=== PATIENT | male | born 1940 | race Caucasian/White ===

== ENCOUNTER 2017-04-07 10:05 | Outpatient (CLI) | payer MEDICARE, OTHER ==
[2017-04-07] MEDS ORDERED: fentaNYL 100 MCG/2 ML VIAL ONE (22:33)
== END 2017-04-07 10:06 | disposition critical access hospital (66) ==
LOC: EMS 10:05
PROVIDERS: ATTEND Surgery
DX: R10.9 Unspecified abdominal pain (principal); M54.9 Dorsalgia, unspecified
CPT/HCPCS: A0425; A0427

== ENCOUNTER 2017-04-07 10:24 | Inpatient (IN) | payer MEDICARE, OTHER ==
[2017-04-07] MEDS ORDERED: HYDROmorphone 1 MG/ML CARPUJECT IVP STA ×5 (10:35→16:38)
[2017-04-07] MEDS ORDERED: SODIUM CHLORIDE 0.9% 1,000 ML IV ONE ×2 (10:35→11:51)
--- NOTE | 2017-04-07 10:38 | ED Physician Documentation ---
History of Present Illness - Stated complaint Stated Complaint: ABD PX - Chief complaint Chief Complaint: Abd Pain - Additonal information Additional information: hx from pt 76 male no prior abd surgeyr abd pain begain at 830epigastric region initially felt like gas rapidly worsened sharp was 10/10 down to 7/10 s/p 150 fenatnyl from EMS rad to back no CO no fever no NVD last BM today s blood no new urinary sx no numbness or weakness Review of Systems Constitutional: denies: Fever, Chills Cardiac: denies: Chest pain / pressure GI: reports: Abdominal Pain. 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) Immunocompromised: denies: Immunocompromised PD PAST MEDICAL HISTORY - Present Medications Home Medications: Ambulatory Orders Medication Instructions Recorded Confirmed Carbidopa/Levodopa [Rytary ER 2 tab PO QID 04/07/17 04/07/17 23.75 mg-95 mg Cap] Clopidogrel [Plavix] 75 mg PO DAILY 04/07/17 04/07/17 Gabapentin 300 mg PO BID 04/07/17 04/07/17 OXcarbazepine [Trileptal] 2 tab PO BID 04/07/17 04/07/17 Pramipexole [Mirapex] 50 mg PO TID 04/07/17 04/07/17 Rosuvastatin Calcium 10 mg PO DAILY 04/07/17 04/07/17 - Allergies Allergies/Adverse Reactions: Allergies Allergy/AdvReac Type Severity Reaction Status Date / Time haloperidol [From Haldol] Allergy Unknown Verified 04/07/17 10:35 haloperidol lactate * Allergy Unknown Verified 04/07/17 10:35 [From Haldol] PD ED PE NORMAL - Vitals Vital signs reviewed: Yes - Cardiac Cardiac: RRR - Respiratory Respiratory: No respiratory distress, Clear bilaterally - Abdomen Abdomen: Soft, Other (severe TTP upper abd s peritoneal signs plapabl aorta as pt is thin, no sig lower abd pain, fullness to inguiinal region osbaldo) - Derm Derm: Normal color - Extremities Extremities: No edema, Other (+ pedal pulses) - Neuro Neuro: Alert and oriented X 3, No motor deficit Results - Vitals Vitals: Vital Signs - 24 hr 04/07/17 04/07/17 04/07/17 10:30 10:38 11:18 Temperature 36.5 C Heart Rate 72 71 Respiratory 22 18 Rate Blood Pressure 150/80 H 140/68 H 180/80 H O2 Saturation 100 98 04/07/17 04/07/17 04/07/17 12:19 13:41 15:53 Temperature 36.1 C L 36.5 C 36.9 C Heart Rate 81 75 78 Respiratory 22 16 18 Rate Blood Pressure 180/80 H 133/93 H 145/70 H O2 Saturation 100 96 100 04/07/17 04/07/17 04/07/17 17:51 19:09 20:26 Temperature 36.0 C L 36.5 C Heart Rate 75 69 79 Respiratory 15 16 16 Rate Blood Pressure 114/62 152/76 H 138/79 H O2 Saturation 97 99 96 Oxygen O2 Source Room air - EKG (time done) 1050 Rate: Rate (enter#) (65) Rhythm: NSR [place]: Normal Ischemia: ST elevation c/w repol, Other (tall T waves) - Labs Labs: Laboratory Tests 04/07/17 04/07/17 04/07/17 10:45 10:45 10:45 WBC 5.0 RBC 4.24 L Hgb 13.6 L Hct 40.8 L MCV 96.3 H MCH 32.1 H MCHC 33.3 RDW 12.9 Plt Count 155 MPV 7.4 Neut # 3.0 Lymph # 1.5 [place] # 0.4 Eos # 0.1 Baso # 0.0 Absolute Nucleated RBC 0.00 Nucleated RBCs 0.0 Sodium 138 Potassium 4.1 Chloride 103 Carbon Dioxide 26 Anion Gap 9.0 BUN 23 H Creatinine 1.1 Estimated GFR (MDRD) 65 L Glucose 107 H Lactic Acid Calcium 9.1 Total Bilirubin 0.8 AST 29 ALT < 10 L Alkaline Phosphatase 54 Troponin I < 0.04 Total Protein 6.2 L Albumin 4.0 Globulin 2.2 Albumin/Globulin Ratio 1.8 Lipase 24 Urine Color Urine Clarity Urine pH Ur Specific [place] Urine Protein Urine Glucose (UA) Urine Ketones Urine Occult Blood Urine Nitrite Urine Bilirubin Urine Urobilinogen Ur Leukocyte Esterase Ur Microscopic Review Urine Culture Comments 04/07/17 04/07/17 15:59 17:00 WBC RBC Hgb Hct MCV MCH MCHC RDW Plt Count MPV Neut # Lymph # [place] # Eos # Baso # Absolute Nucleated RBC Nucleated RBCs Sodium Potassium Chloride Carbon Dioxide Anion Gap BUN Creatinine Estimated GFR (MDRD) Glucose Lactic Acid 1.2 Calcium Total Bilirubin AST ALT Alkaline Phosphatase Troponin I Total Protein Albumin Globulin Albumin/Globulin Ratio Lipase Urine Color YELLOW Urine Clarity CLEAR Urine pH 6.0 Ur Specific [place] >=1.030 H Urine Protein NEGATIVE Urine Glucose (UA) NEGATIVE Urine Ketones 15 H Urine Occult Blood NEGATIVE Urine Nitrite NEGATIVE Urine Bilirubin NEGATIVE Urine Urobilinogen 0.2 (NORMAL) Ur Leukocyte Esterase NEGATIVE Ur Microscopic Review NOT INDICATED Urine Culture Comments NOT INDICATED - Rads (name of study) CT abd pelvis Radiology: See rad report (closed loop bowel osbt L mid abd) PD MEDICAL DECISION MAKING - ED course ED course: severe epigastric pain rad to back restless, palpable aorta bedside sono not working/avil so got stat non con CT and it did not show a AAA but did show a closed loop bowel obst so consulted surgeron Dr Tay he req CT oral con - then rad rec fluoro small bowel follow through instead - on second image no progress of contrast past stomach so completely obstructed Dr Bernal to take pt to OR Departure - Departure Disposition: ED Transfer to [facility] Clinical Impression: Abdominal pain Qualifiers: Abdominal location: left upper quadrant Qualified Code(s): R10.12 - Left upper quadrant pain Intestinal obstruction Qualifiers: Intestinal obstruction type: unspecified Qualified Code(s): K56.60 - Unspecified intestinal obstruction Condition: Fair
[2017-04-07 10:58] LABS: BASOPHILS % (AUTO) 0.8 %; EOSINOPHILS # (AUTO) 0.1 10^3/uL (0.0-0.7); EOSINOPHILS % (AUTO) 1.1 %; HCT - HEMATOCRIT 40.8 % (42.0-52.0); HGB - HEMOGLOBIN 13.6 g/dL (14.0-18.0); LYMPHOCYTES # (AUTO) 1.5 10^3/uL (1.5-3.5); LYMPHOCYTES % (AUTO) 29.4 %; MEAN CORPUSCULAR HEMOGLOBIN 32.1 pg (27.0-31.0); MEAN CORPUSCULAR HGB CONC 33.3 g/dL (32.0-36.0); MEAN CORPUSCULAR VOLUME 96.3 fL (80.0-94.0); MEAN PLATELET VOLUME 7.4 fL (7.4-11.4); MONOCYTES # (AUTO) 0.4 10^3/uL (0.0-1.0); MONOCYTES % (AUTO) 8.5 %; NEUTROPHILS % (AUTO) 60.2 %; RED BLOOD COUNT 4.24 10^6/uL (4.70-6.10); RED CELL DISTRIBUTION WIDTH 12.9 % (12.0-15.0)
[2017-04-07] MEDS ORDERED: HYDROmorphone 1 MG/ML CARPUJECT ONE ×5 (10:59→17:12)
[2017-04-07 11:15] LABS: ALBUMIN/GLOBULIN RATIO 1.8 (1.0-2.2); BILIRUBIN,TOTAL 0.8 mg/dL (0.2-1.0); BUN - BLOOD UREA NITROGEN 23 mg/dL (6-20); CALCIUM 9.1 mg/dL (8.5-10.3); CARBON DIOXIDE - CO2 26 mmol/L (21-32); CHLORIDE 103 mmol/L (101-111); CREATININE 1.1 mg/dL (0.6-1.2); GFR - MDRD 65 (>89); GLUCOSE 107 mg/dL (70-100); LIPASE 24 U/L (22-51); POTASSIUM 4.1 mmol/L (3.5-5.0); SODIUM 138 mmol/L (135-145); TOTAL PROTEIN 6.2 g/dL (6.7-8.2)
--- NOTE | 2017-04-07 12:29 | CT Preliminary Report ---
Exam: CT Abdomen/Pelvis W/O IMPRESSION: 1. Closed loop bowel small bowel obstruction in the left midabdomen. Findings discussed with Dr. Julia Echols by Dr. Joy Hanson on 04/07/2017 at 1220. [facility] SITE ID: [id number]
--- NOTE | 2017-04-07 12:32 | CT Report ---
EXAM: CT ABDOMEN AND PELVIS (CT KUB) EXAM DATE: 04/07/2017 11:19 AM. CLINICAL HISTORY: Sharp upper abd pain rad to back. COMPARISONS: None. TECHNIQUE: Routine axial helical CT imaging was performed through the abdomen and pelvis without IV c ontrast. Reconstructions: Coronal and sagittal. In accordance with CT protocol optimization, one or more of the following dose reduction techniques w ere utilized for this exam: automated exposure control, adjustment of mA and/or KV based on patient s ize, or use of iterative reconstructive technique. FINDINGS: Lung Bases: Unremarkable. Right Kidney/Ureter: Mild nonspecific perinephric fat stranding. No stones or hydronephrosis Left Kidney/Ureter: Mild nonspecific perinephric fat stranding. No stones or hydronephrosis Other Solid Organs: Noncontrast images of the solid organs are grossly unremarkable. Gallbladder/Bile Ducts: Unremarkable. Peritoneal Cavity: There is distention of radially distributed fluid-filled small bowel loops in the left midabdomen with surrounding free fluid and swirled mesentery (for reference, transverse series 3 , image 37 and coronal series 5, image 15). The proximal and distal bowel is decompressed. High atten uation material in lower abdominal small bowel loops may represent ingested material. Normal appendix . No pneumoperitoneum. Pelvic Organs: Normal urinary bladder. Soft tissue attenuation in the right scrotum may represent a r etracted testis or prior hernia repair with mesh. Vasculature: Moderate aortobiiliac atherosclerosis without aneurysm. Other: Severe degenerative disk disease L5-S1. Mild levocurvature of the lumbar spine. IMPRESSION: 1. Closed loop bowel small bowel obstruction in the left midabdomen. Findings discussed with Dr. Julia Echols by Dr. Joy Hanson on 04/07/2017 at 1220. [facility] Referring Provider Line: [phone] SITE ID: [id number]
[2017-04-07] MEDS ORDERED: IOPAMIDOL-300 50 ML VIAL ONE (13:15)
[2017-04-07 17:26] LABS: BILIRUBIN,URINE NEGATIVE (NEGATIVE)
[2017-04-07 17:27] LABS: UA CHARGE (STRIP ONLY) YES; UR CULTURE IF IND NOT INDICATED
--- NOTE | 2017-04-07 19:13 | XRAY Report ---
SMALL BOWEL FOLLOW THROUGH: 04/07/2017 HISTORY: Abnormal CT scan raising the possibility of bowel obstruction. FINDINGS: The preliminary dehydrator operator film shows a grossly nonspecific bowel gas pattern. The patient is given 100 mL of Gastrografin to swallow by mouth. Images are performed initially, at 30 minutes, and at 2 hours 40 minutes. The contrast material remains in the stomach, the majority of it within the gastric fundus with reflux into the distal half of a mildly dilated esophagus. The findings were discussed with Dr. Tay and the study was terminated. IMPRESSION: CONTRAST REMAINS WITHIN THE ESOPHAGUS AND STOMACH 2 HOURS 40 MINUTES AFTER CONTRAST INGESTION. JOB #: [id number] EXT JOB #: [id number] [facility]
[2017-04-07] MEDS ORDERED: LACTATED RINGERS 1,000 ML IV ONE ×2 (19:52→22:22)
[2017-04-07] MEDS: LACTATED RINGERS 1,000 ML IV ONE ×2 (19:52→22:13)
[2017-04-07] MEDS ORDERED: PROPOFOL 200 MG/20 ML VIAL IVP ONE (20:00)
[2017-04-07] MEDS ORDERED: ONDANSETRON 4 MG/2 ML VIAL IVP ONE (20:00)
[2017-04-07] MEDS ORDERED: ROCURONIUM 50 MG/5 ML VIAL IVP ONE (20:00)
[2017-04-07] MEDS ORDERED: NEOSTIGMINE 1 MG/1 ML 10 ML MDV IVP ONE (20:00)
[2017-04-07] MEDS ORDERED: GLYCOPYRROLATE 1 MG/5 ML VIAL IVP ONE (20:00)
[2017-04-07] MEDS ORDERED: ePHEDrine 50 MG/ML VIAL IVP ONE (20:00)
[2017-04-07] MEDS ORDERED: ceFAZolin 1 GM VIAL IV ONE (20:00)
[2017-04-07] MEDS ORDERED: MIDAZOLAM 2 MG/2 ML VIAL IVP ONE (20:00)
[2017-04-07] MEDS ORDERED: LIDOCAINE-MPF 2% 5 ML VIAL IM ONE (20:00)
[2017-04-07] MEDS ORDERED: SUCCINYLCHOLINE 200 MG/10 ML VIAL IVP ONE (20:00)
[2017-04-07] MEDS ORDERED: fentaNYL 100 MCG/2 ML VIAL IVP ONE (20:00)
[2017-04-07] MEDS ORDERED: DEXAMETHASONE 4 MG/ML VIAL IVP ONE (20:00)
--- NOTE | 2017-04-07 20:07 | XRAY Preliminary Report ---
Exam: XR Abdomen 1 View IMPRESSION: 1. Contrast remains in the stomach. 2. Minimally prominent small bowel loops in the left mid abdomen corresponding to the CT findings. No focal transition point is noted. [facility] SITE ID: [id number]
--- NOTE | 2017-04-07 20:20 | XRAY Report ---
EXAM: ABDOMEN RADIOGRAPHY EXAM DATE: 04/07/2017 07:57 p.m. CLINICAL HISTORY: Abdominal pain. COMPARISON: 04/07/2017. TECHNIQUE: 1 view. FINDINGS: Bowel Gas Pattern: Contrast is present within the stomach. Mildly prominent small bowel loops are pre sent in the left mid abdomen measuring up to 2.7 cm. No pneumatosis. No dilated bowel or focal transi tion point. Moderate amount of stool is noted in the right colon. Other: Phleboliths are noted in the pelvis. IMPRESSION: 1. Contrast remains in the stomach. 2. Minimally prominent small bowel loops in the left mid abdomen corresponding to the CT findings. No focal transition point is noted. [facility] Referring Provider Line: [phone] SITE ID: [id number]
[2017-04-07] MEDS ORDERED: BUPIVACAINE 0.5% PF 30 ML VIAL INFIL ONE (22:13)
[2017-04-07] MEDS ORDERED: ACETAMINOPHEN 1,000 MG/100 ML 100 ML IV ONE (22:28)
[2017-04-07] MEDS: fentaNYL 100 MCG/2 ML VIAL ONE ×2 (22:30→22:45)
[2017-04-07] MEDS: HYDROmorphone 1 MG/ML CARPUJECT ONE ×2 (22:33→22:40)
[2017-04-07] MEDS ORDERED: ONDANSETRON 4 MG/2 ML VIAL IVP PRN (22:46)
[2017-04-07] MEDS ORDERED: PHENOL THROAT SPRAY 177 ML MM PRN (22:46)
--- NOTE | 2017-04-07 22:59 | OPERATIVE REPORT ---
Operative Report - General Procedure Date: 04/07/17 Planned Procedure: Exploratory laparotomy possible bowel resection Pre-Op Diagnosis: Bowel obstruction and abdominal pain Procedure Performed: Exploratory laparotomy and adhesiolysis Post Op Diagnosis: Adhesive bowel obstruction - Procedure Note Primary Surgeon: Luis Tay MD Anesthesia Provider: Anjana Williamson Anesthesia Technique: General ET tube, Local (30 mL 1/2% marcaine) IV Fluids (mL): 1,000 Estimated Blood Loss (mL): 10 (Note 800 mL of bloody fluid found in abdomen) Complications: None. - Other Other Information/Narrative: OPERATIVE DESCRIPTION/REPORT: After verbal and written informed consent was obtained detailing the risks of infection, bleeding requiring transfusion with its risks, and , the patient was brought to the operative suite and placed supine on the operating table. Great care was taken to avoid pressure points to prevent pressure necrosis or nerve injury. Monitoring devices were applied along with TEDs and pneumatic compressive stockings (to prevent DVT). The patient received preoperative antibiotics for surgical prophylaxis. Anjana Williamson sedated and anesthetized the patient for the entire procedure. A Judd was placed. The patient was prepped and draped in the usual sterile manner. A "time in" then confirmed that the paitient was identified with 3 identifiers (name, birthdate and medical record number), the history and physical was in the chart, the signed consent confirming the procedure was in the chart, the patient was in the correct position, the aforementioned prophylactic measures were in place or given, we had the correct personnel and equipment to complete the procedure and that anesthesia, surgery and nursing were given an opportunity to express any concerns. With the agreement of everyone in the room, we proceeded with the operation. A midline incision was made from just above the umbilicus to just below the xiphoid. Sharp dissection utilizing Bovie electrocautery was used to expose the linea alba. The linea alba was opened using Bovie electrocautery. The peritoneum was incised using Metzenbaum scissor gaining entry into the abdomen without incident. Upon opening the peritoneum, the abdomen was carefully examined. Immediately there was a return of approximately 800 mL of bloody serous fluid. The liver and spleen were visually and palpably normal. The stomach was distended but normal-appearing. There is nothing seen in the stomach to suggest the cause of obstruction. The colon was run and was normal with hard stool throughout it. The stools within the colon were hard and small. When the small bowel was run it was clear that there was an adhesion of omentum down to the posterior portion of the abdomen causing a closed loop obstruction. The amount of bowel involved was approximately 16 inches. It was dusky but clearly viable. It was a source of the large amount of bloody fluid in the patient's abdomen. The adhesion was cut, freeing the bowel, and the bowel was placed into warm saline moistened towels to help revitalize it. After allowing this to occur for approximately 10 minutes the bowel was examined and was clearly viable. All the bowel and the omentum placed back into the abdomen and the abdomen was irrigated with 1 L of warm sterile saline. The fascia was approximated using O looped PDS starting superiorly and inferiorly and running to tie it in the middle. The fascia and skin was injected with 1/2% marcaine for pain control. The skin was approximated using a 4-0 Monocryl in a running subcuticular fashion. A dressing was placed on the wound. At this point a time out was performed that confirmed that all the counts were correct, the procedure that was performed, the blood loss, the urine output, the IV fluids administered, and the patients condition. Having tolerated the procedure well, the patient was subsequently extubated and taken to recovery room in good and stable condition. [employer] disclaimer: This document was created in part using voice recognition technology. Because of the inherent limitations of the system ([employer]'s [employer] Dictate user manual states that the licensee understands that speech recognition is a statistical process and that recognition errors are inherent in the process), occasional same sounding word substitutions and grammatical errors do occur and persist despite proofreading. Please read this document for context.
[2017-04-08] MEDS: HYDROmorphone 1 MG/ML CARPUJECT IVP PRN ×8 (00:53→18:53)
[2017-04-08] MEDS: SODIUM CHLORIDE FLUSH 0.9% 10 ML SYRINGE IVP PRN (00:53)
[2017-04-08] MEDS: D5NS W/20 MEQ KCL 1,000 ML IV SCH ×2 (01:06→13:18)
[2017-04-08] MEDS: ACETAMINOPHEN 1,000 MG/100 ML 100 ML IV SCH ×6 (01:06→22:26)
--- NOTE | 2017-04-08 01:23 | CONSULTATION NOTE ---
DATE OF CONSULTATION: 04/07/2017 00:00:00 REQUESTING PROVIDER: Dr. Julia Echols. HISTORY OF PRESENT ILLNESS: I am called in consultation Dr. Julia Echols to evaluate this pleasant [age]-year-old male for the abrupt onset of abdominal pain. The patient has not had any previous surgerie s and had the abrupt onset of abdominal pain approximately 8:30 this morning. He initially felt like gas and rapidly worsened to the point the emergency department. Initially the pain was described anyw here from 01/26-04/28 and initial attempts to control it with opiates were unsuccessful. There was no fever. There was no nausea, vomiting. There was no diarrhea. There is no constipation. The last bowel movement was today. The patient has not had a previous history of this. ALLERGIES Haldol. MEDICATIONS: 1. Carbidopa/Levodopa 23.75-95 mg capsule 2 tabs p.o. q.i.d.. 2. Plavix 75 mg p.o. daily. 3. Gabapentin 300 mg p.o. b.i.d. 4. Trileptal 2 tabs p.o. b.i.d. 5. Mirapex 50 mg tablet p.o. t.i.d. 6. Rosuvastatin calcium 10 mg p.o. daily. PAST MEDICAL AND SURGICAL HISTORY: 1. Parkinsonism. 2. History of stroke. 3. Dyslipidemia. FAMILY HISTORY: Noncontributory for this and was not asked. SOCIAL HISTORY: Tobacco, none. Alcohol, none. Recreational drug use, none. REVIEW OF SYSTEMS: CONSTITUTIONAL: He denies any fevers or chills. He denies any weight loss. HEENT: He denies any improvement or decrease in his hearing or vision, denies any difficulty speaking or swallowing. CARDIAC: He denies chest pain or pressure. RESPIRATORY: He denies shortness of breath or productive cough. GASTROINTESTINAL: Please see above. GENITOURINARY: He denies dysuria. MUSCULOSKELETAL: He has chronic back pain. NEUROLOGIC: Again, Parkinsonism. PHYSICAL EXAMINATION: The patient was examined in room 9 at [facility]. He was exam ined numerous times and initially noted to be in a great deal of pain, but then the pain subsided. He is alert and oriented to person, place and time. He does demonstrate some of the speaking qualities of general Parkinson's. VITAL SIGNS: Please refer to the nurse's notes. HEENT: He is normocephalic, atraumatic. His sclerae are noninjected, nonicteric. His mucous membranes are pink and dry. NECK: Supple without mass or bruit. HEART: Regular rate and rhythm without rub, murmur or gallop. LUNGS: Clear to auscultation bilaterally. ABDOMEN: Surprisingly, scaphoid. There was no palpable hepatosplenomegaly. There are bowel sounds. Th ere are almost normal, a little bit diminished. He has no peritoneal findings. RECTAL: Deferred. GENITOURINARY: Deferred. EXTREMITIES: Did not reveal any clubbing, cyanosis or edema. GAIT: Not evaluated. PSYCHIATRIC: He is alert and oriented to person, place and time, although he demonstrates again as me ntioned some of the speaking qualities similar to Parkinson's. His mood and affect appear appropriate . LABORATORY: Abnormalities on his CMP include a BUN of 23, GFR of 65, glucose of 107, ALT of less than 10, total protein of 6.2. Abnormalities on his hematology include a RBC of 4.24, hemoglobin 13.6, he matocrit of 40.8, MCV of 96.3, and a MCH of 32.1 Abnormalities in his urine reveals specific gravity of greater than 1.030 and urine ketones of 15. His initial abdominopelvic CT read by Dr. Hanson is read this closed loop small-bowel obstruction in th e left mid abdomen. ASSESSMENT: A 76-year-old gentleman with bowel obstruction. PLAN: Exploratory laparotomy and lysis of adhesions. It took a little while to convince the patient o f the need for surgery. However, the indications, procedure, alternatives and possible complications including but not limited to infection, bleeding with all of its risks including transfusion, and jackelyn th with him and answered all of his questions. Postoperative course was discussed with him as terms o f what the expected postoperative course is. I explained that postoperatively he would be allowed to and encouraged to take his own medications. The patient did give verbal and written consent for the p rocedure. He is going to be admitted as an inpatient with anticipated stay at greater than 2 days. I have asked him to let us know if there is any way we can make his stay here at [facility] mo re comfortable please let us know. I will also consult the hospitalist service to ensure that his med ications are looked over to make sure that I am not overly looking anything. JOB #: [id number] EXT JOB #:[id number]
[2017-04-08] MEDS: ceFAZolin 2 GM/50 ML 50 ML IV SCH ×3 (04:14→20:08)
[2017-04-08 05:39] LABS: BASOPHILS % (AUTO) 0.1 %; HCT - HEMATOCRIT 41.6 % (42.0-52.0); HGB - HEMOGLOBIN 13.7 g/dL (14.0-18.0); LYMPHOCYTES # (AUTO) 0.4 10^3/uL (1.5-3.5); LYMPHOCYTES % (AUTO) 3.7 %; MEAN CORPUSCULAR HEMOGLOBIN 32.2 pg (27.0-31.0); MEAN CORPUSCULAR HGB CONC 32.8 g/dL (32.0-36.0); MEAN CORPUSCULAR VOLUME 98.1 fL (80.0-94.0); MEAN PLATELET VOLUME 7.7 fL (7.4-11.4); MONOCYTES # (AUTO) 0.3 10^3/uL (0.0-1.0); MONOCYTES % (AUTO) 2.6 %; NEUTROPHILS # (AUTO) 9.2 10^3/uL (1.5-6.6); NEUTROPHILS % (AUTO) 93.6 %; RED BLOOD COUNT 4.24 10^6/uL (4.70-6.10); RED CELL DISTRIBUTION WIDTH 13.2 % (12.0-15.0); UNCORRECTED WHITE BLOOD COUNT 9.9 x10^3/uL; WHITE BLOOD COUNT 9.9 x10^3/uL (4.8-10.8)
[2017-04-08 05:50] LABS: ALBUMIN/GLOBULIN RATIO 1.5 (1.0-2.2); BILIRUBIN,TOTAL 0.8 mg/dL (0.2-1.0); BUN - BLOOD UREA NITROGEN 23 mg/dL (6-20); CARBON DIOXIDE - CO2 25 mmol/L (21-32); CHLORIDE 107 mmol/L (101-111); GFR - MDRD 72 (>89); GLUCOSE 181 mg/dL (70-100); POTASSIUM 4.9 mmol/L (3.5-5.0); SODIUM 138 mmol/L (135-145); TOTAL PROTEIN 5.5 g/dL (6.7-8.2)
[2017-04-08] MEDS ORDERED: PRAMIPEXOLE 0.25 MG TABLET PO SCH ×2 (06:00→07:00)
[2017-04-08] MEDS: SODIUM CHLORIDE FLUSH 0.9% 10 ML SYRINGE IVP SCH ×3 (06:26→21:16)
[2017-04-08] MEDS: PANTOPRAZOLE 40 MG VIAL IVP SCH (06:26)
[2017-04-08] MEDS ORDERED: ROSUVASTATIN CALCIUM 10 MG PO SCH (09:00)
[2017-04-08] MEDS: OXcarbazepine 150 MG TABLET PO SCH ×2 (10:45→21:15)
[2017-04-08] MEDS: GABAPENTIN 300 MG CAPSULE PO SCH ×2 (10:45→21:16)
[2017-04-08] MEDS: CLOPIDOGREL 75 MG TABLET PO SCH (11:04)
[2017-04-08] MEDS: PRAMIPEXOLE 0.25 MG TABLET PO SCH ×3 (12:12→21:16)
[2017-04-08] MEDS: Carbidopa/Levodopa [Rytary Er 23.75 Mg-95 Mg Cap] PO SCH ×4 (12:13→22:27)
[2017-04-08] MEDS ORDERED: tiZANidine 4 MG TABLET PO PRN (13:41)
[2017-04-08] MEDS: ATORVASTATIN 40 MG TABLET PO SCH (21:15)
--- NOTE | 2017-04-08 23:20 | PROVIDER PROGRESS NOTE ---
Subjective - General Admit Date: 04/07/17 Procedure Date: 04/07/17 Post Op Days: 1 Procedure Performed: Exploratory laparotomy and adhesiolysis - Review of Systems Wound/Incisions: positive: Dressing dry and intact General: positive: Other (Complaint of Parkinson's related pain. Some occasional abdominal bloating. NG tube pulled by me.) HEENT: positive: No symptoms Cardiovascular: positive: No symptoms Gastrointestinal: positive: Other (Occasional bloating.) Genitourinary: positive: Other (Judd in place will remove in AM.) Musculoskeletal: positive: Other (Parkinsonian pain.) Skin: positive: No symptoms Psychiatric: positive: No symptoms Objective - Patient Data Reviewed Vital Signs: Yes Vital Signs: Vital Signs x48h Temp Pulse Resp BP Pulse Ox 04/08/17 15:54 36.6 C 76 18 110/52 L 97 Weight: Weight 04/06/17 04/07/17 04/08/17 23:59 23:59 23:59 Weight (kg) 68.5 kg Intake & Output: Intake and Output Totals x24h 04/06/17 04/07/17 04/08/17 23:59 23:59 23:59 Intake Total 1999 2136 Output Total 1075 Balance 1999 1062 - Lab Results Lab Results: 04/08/17 05:26 04/08/17 05:26 Other Lab Results: Lab Results x24hrs 04/08/17 04/08/17 Range/Units 05:26 05:26 WBC 9.9 (4.8-10.8) x10^3/uL RBC 4.24 L (4.70-6.10) 10^6/uL Hgb 13.7 L (14.0-18.0) g/dL Hct 41.6 L (42.0-52.0) % MCV 98.1 H (80.0-94.0) fL MCH 32.2 H (27.0-31.0) pg MCHC 32.8 (32.0-36.0) g/dL RDW 13.2 (12.0-15.0) % Plt Count 146 (130-450) 10^3/uL MPV 7.7 (7.4-11.4) fL Neut # 9.2 H (1.5-6.6) 10^3/uL Lymph # 0.4 L (1.5-3.5) 10^3/uL [place] # 0.3 (0.0-1.0) 10^3/uL Eos # 0.0 (0.0-0.7) 10^3/uL Baso # 0.0 (0.0-0.1) 10^3/uL Absolute Nucleated RBC 0.00 x10^3/uL Nucleated RBCs 0.0 /100WBC Sodium 138 (135-145) mmol/L Potassium 4.9 (3.5-5.0) mmol/L Chloride 107 (101-111) mmol/L Carbon Dioxide 25 (21-32) mmol/L Anion Gap 6.0 (6-13) BUN 23 H (6-20) mg/dL Creatinine 1.0 (0.6-1.2) mg/dL Estimated GFR (MDRD) 72 L (>89) Glucose 181 H (70-100) mg/dL Calcium 8.0 L (8.5-10.3) mg/dL Total Bilirubin 0.8 (0.2-1.0) mg/dL AST 25 (10-42) IU/L ALT < 10 L (10-60) IU/L Alkaline Phosphatase 50 (42-121) IU/L Total Protein 5.5 L (6.7-8.2) g/dL Albumin 3.3 (3.2-5.5) g/dL Globulin 2.2 (2.1-4.2) g/dL Albumin/Globulin Ratio 1.5 (1.0-2.2) - Current Medications Current Medications: Current Medications Generic Name Dose Route Start Last Admin Trade Name Saschaq PRN Reason Stop Dose Admin Atorvastatin Calcium 40 mg 04/08/17 21:00 04/08/17 21:15 Lipitor PO 40 mg QPM HAKAN Administration Clopidogrel Bisulfate 75 mg 04/08/17 09:00 04/08/17 11:04 Plavix PO Not Given DAILY HAKAN Gabapentin 300 mg 04/08/17 09:00 04/08/17 21:16 Neurontin PO 300 mg BID HAKAN Administration Hydromorphone HCl 0.5 mg 04/07/17 22:46 04/08/17 18:53 Dilaudid Inj IVP 0.5 mg Q1HR PRN Administration PAIN Potassium Chloride/Dextrose/Sod Cl 1,000 mls @ 83 mls/hr 04/07/17 23:00 13:18 IV 83 mls/hr .Q12H3M HAKAN Administration Acetaminophen 100 mls @ 400 mls/hr 04/07/17 23:00 04/08/17 22:26 Ofirmev IV 400 mls/hr Q6H HAKAN Administration Cefazolin Sodium/Dextrose 50 mls @ 100 mls/hr 04/08/17 04:00 04/08/17 20:08 Ancef 2 Gm/50 Ml IV 100 mls/hr Q8H HAKAN Administration Oxcarbazepine 300 mg 04/08/17 09:00 04/08/17 21:15 Trileptal PO 300 mg BID HAKAN Administration Pantoprazole Sodium 40 mg 04/08/17 07:00 04/08/17 06:26 Protonix IVP 40 mg QDAC HAKAN Administration Carbidopa/Levodopa [ 1 each 04/08/17 22:00 04/08/17 22:27 Rytary Er 23.75 Mg- PO 1 each 95 Mg Cap] 2200 HAKAN Administration Phenol/Menthol 1 sprays 04/07/17 22:46 04/08/17 00:52 Chloraseptic MM 1 sprays Q2HR PRN Administration Throat Pain Pramipexole Dihydrochloride 0.5 mg 04/08/17 21:00 04/08/17 21:16 Mirapex PO 0.5 mg QID HAKAN Administration Sodium Chloride 10 ml 04/07/17 22:46 04/08/17 00:53 Normal Saline Flush 0.9% IVP 10 ml PRN PRN Administration NEEDED PER PROVIDER ORDERS Sodium Chloride 10 ml 04/08/17 06:00 04/08/17 21:16 Normal Saline Flush 0.9% IVP Not Given Q8HR HAKAN - Physical Exam Wound/Incisions: positive: Dressing dry and intact General Appearance: positive: No acute distress, Anxious (Slightly.) Eyes Bilateral: positive: No lid inflammation, Conjunctivae nml, No scleral icterus Neck: positive: Trachea midline Respiratory: positive: Chest non-tender, No respiratory distress, Breath sounds nml Cardiovascular: positive: Regular rate & rhythm Abdomen: positive: Tenderness (Mild incisional.), Abnml bowel sounds (Decreased. ) Skin: positive: Color nml Neurologic/Psychiatric: positive: Oriented x3 Impression/Plan - Problem List Problem List: D1 s/p exploratory laparotomy and adhesiolysis for closed loop obstruction with compromised bowel that reposnded to conservative measures. 1) FEN Continue IVF with chips and sips for comfort. Until see some evidence of bowel function I am unwilling to feed. 2) Pain Controlled with current regimen. 3) Parkinsons On his daily regimen. If not available through the pharmacy - patient can take his own medications. Thank you to pharmacy and hospitalists for help. 4) DVT Ambulated twice today in the halls - that I personally witnessed. Increased activity should lead to sooner bowel function. 5) ID No current concerns. Antibiotics not needed.
[2017-04-09] MEDS: HYDROmorphone 1 MG/ML CARPUJECT IVP PRN ×9 (00:43→19:03)
[2017-04-09] MEDS: clonazePAM 0.5 MG TABLET PO PRN ×2 (00:43→22:55)
[2017-04-09] MEDS: SODIUM CHLORIDE FLUSH 0.9% 10 ML SYRINGE IVP PRN ×5 (00:59→19:04)
[2017-04-09] MEDS: D5NS W/20 MEQ KCL 1,000 ML IV SCH ×2 (02:36→17:48)
[2017-04-09] MEDS: ceFAZolin 2 GM/50 ML 50 ML IV SCH ×3 (03:22→20:32)
[2017-04-09] MEDS: ACETAMINOPHEN 1,000 MG/100 ML 100 ML IV SCH ×4 (05:14→23:00)
[2017-04-09] MEDS: SODIUM CHLORIDE FLUSH 0.9% 10 ML SYRINGE IVP SCH ×3 (05:14→21:56)
[2017-04-09] MEDS: PANTOPRAZOLE 40 MG VIAL IVP SCH (06:33)
[2017-04-09] MEDS: Carbidopa/Levodopa [Rytary Er 23.75 Mg-95 Mg Cap] PO SCH ×5 (06:33→21:55)
[2017-04-09] MEDS ORDERED: PRAMIPEXOLE 0.25 MG TABLET PO SCH (10:30)
[2017-04-09] MEDS: OXcarbazepine 150 MG TABLET PO SCH ×2 (10:36→20:32)
[2017-04-09] MEDS: PRAMIPEXOLE 0.25 MG TABLET PO SCH ×3 (10:36→18:33)
[2017-04-09] MEDS: GABAPENTIN 300 MG CAPSULE PO SCH ×2 (10:36→21:55)
[2017-04-09] MEDS: CLOPIDOGREL 75 MG TABLET PO SCH ×2 (10:39→20:32)
[2017-04-09] MEDS: ATORVASTATIN 40 MG TABLET PO SCH (20:32)
--- NOTE | 2017-04-09 21:39 | PROVIDER PROGRESS NOTE ---
Subjective - General Admit Date: 04/07/17 Procedure Date: 04/07/17 Post Op Days: 2 Procedure Performed: Exploratory laparotomy and adhesiolysis - Review of Systems Wound/Incisions: positive: Dressing dry and intact General: positive: Other (Still no flatus or bowel movement.) HEENT: positive: No symptoms Pulmonary: positive: No symptoms Cardiovascular: positive: No symptoms Gastrointestinal: positive: No symptoms Genitourinary: positive: Other (Judd in place will remove in AM.) Musculoskeletal: positive: Other (Parkinsonian pain.) Skin: positive: No symptoms Psychiatric: positive: No symptoms Objective - Patient Data Reviewed Vital Signs: Yes Vital Signs: Vital Signs x48h Temp Pulse Resp BP Pulse Ox 04/09/17 16:38 36.2 C L 73 18 146/80 H 98 Weight: Weight 04/07/17 04/08/17 04/09/17 23:59 23:59 23:59 Weight (kg) 68.5 kg Intake & Output: Intake and Output Totals x24h 04/07/17 04/08/17 04/09/17 23:59 23:59 23:59 Intake Total 1999 2137 1627 Output Total 1075 1815 Balance 1999 1062 -188 - Lab Results Lab Results: 04/08/17 05:26 04/08/17 05:26 - Current Medications Current Medications: Current Medications Generic Name Dose Route Start Last Admin Trade Name Freq PRN Reason Stop Dose Admin Atorvastatin Calcium 40 mg 04/08/17 21:00 04/09/17 20:32 Lipitor PO 40 mg QPM HAKAN Administration Clonazepam 0.5 mg 04/08/17 13:41 04/09/17 00:43 Klonopin PO 0.5 mg QPM PRN Administration Insomnia Clopidogrel Bisulfate 75 mg 04/09/17 21:00 04/09/17 20:32 Plavix PO 75 mg 2100 HAKAN Administration Gabapentin 300 mg 04/08/17 09:00 04/09/17 10:36 Neurontin PO 300 mg BID HAKAN Administration Hydromorphone HCl 0.5 mg 04/07/17 22:46 04/09/17 19:03 Dilaudid Inj IVP 0.5 mg Q1HR PRN Administration PAIN Potassium Chloride/Dextrose/Sod Cl 1,000 mls @ 83 mls/hr 04/07/17 23:00 17:48 IV 83 mls/hr .Q12H3M HAKAN Administration Acetaminophen 100 mls @ 400 mls/hr 04/07/17 23:00 04/09/17 18:33 Ofirmev IV 400 mls/hr Q6H HAKAN Administration Cefazolin Sodium/Dextrose 50 mls @ 100 mls/hr 04/08/17 04:00 04/09/17 20:32 Ancef 2 Gm/50 Ml IV 100 mls/hr Q8H HAKAN Administration Oxcarbazepine 300 mg 04/08/17 09:00 04/09/17 20:32 Trileptal PO 300 mg BID HAKAN Administration Pantoprazole Sodium 40 mg 04/08/17 07:00 04/09/17 06:33 Protonix IVP 40 mg QDAC HAKAN Administration Carbidopa/Levodopa [ 2 each 04/09/17 06:30 04/09/17 18:34 Rytary Er 23.75 Mg- PO 2 each 95 Mg Cap] 0630,1030,1430,1830 HAKAN Administration Carbidopa/Levodopa [ 1 each 04/08/17 22:00 04/08/17 22:27 Rytary Er 23.75 Mg- PO 1 each 95 Mg Cap] 2200 HAKAN Administration Phenol/Menthol 1 sprays 04/07/17 22:46 04/08/17 00:52 Chloraseptic MM 1 sprays Q2HR PRN Administration Throat Pain Pramipexole Dihydrochloride 0.5 mg 04/09/17 12:47 04/09/17 18:33 Mirapex PO 0.5 mg 0630,1030,1430,1830 HAKAN Administration Sodium Chloride 10 ml 04/07/17 22:46 04/09/17 19:04 Normal Saline Flush 0.9% IVP 10 ml PRN PRN Administration NEEDED PER PROVIDER ORDERS Sodium Chloride 10 ml 04/08/17 06:00 04/09/17 08:03 Normal Saline Flush 0.9% IVP Not Given Q8HR HAKAN Tizanidine HCl 4 mg 04/08/17 13:41 04/09/17 17:42 Zanaflex PO 4 mg BID PRN Administration SPASMS - Physical Exam Wound/Incisions: positive: Drainage (But dressing intact. Drainage is old blood.) General Appearance: positive: No acute distress Eyes Bilateral: positive: No lid inflammation, Conjunctivae nml, No scleral icterus Neck: positive: Trachea midline Respiratory: positive: Chest non-tender, No respiratory distress, Breath sounds nml Cardiovascular: positive: Regular rate & rhythm Abdomen: positive: Abnml bowel sounds (Slightly decreased.), Other (Minimal incisional tenderness.) Skin: positive: Color nml Extremities: positive: Nml appearance, Other (Slight tremor particularly of the right hand.) Neurologic/Psychiatric: positive: Oriented x3 Impression/Plan - Problem List Problem List: D2 s/p adhesiolysis 1) FEN Continue IVF and liquid diet. Awaiting evidence of bowel function prior to feeding. 2) Parkinsons Appears under control. 3) Pain Controlled. 4) DVT Active - ambulated 2x this AM. Chad and anay when in bed. 5) Judd Out this AM.
[2017-04-10] MEDS: ceFAZolin 2 GM/50 ML 50 ML IV SCH ×3 (03:29→21:02)
[2017-04-10] MEDS: ACETAMINOPHEN 1,000 MG/100 ML 100 ML IV SCH ×4 (04:13→22:34)
[2017-04-10] MEDS: D5NS W/20 MEQ KCL 1,000 ML IV SCH ×3 (06:20→21:02)
[2017-04-10] MEDS: Carbidopa/Levodopa [Rytary Er 23.75 Mg-95 Mg Cap] PO SCH ×5 (06:25→22:34)
[2017-04-10] MEDS: PANTOPRAZOLE 40 MG VIAL IVP SCH (06:26)
[2017-04-10] MEDS: PRAMIPEXOLE 0.25 MG TABLET PO SCH ×4 (06:26→18:27)
[2017-04-10] MEDS: SODIUM CHLORIDE FLUSH 0.9% 10 ML SYRINGE IVP SCH ×3 (06:27→22:35)
[2017-04-10] MEDS: SODIUM CHLORIDE FLUSH 0.9% 10 ML SYRINGE IVP PRN ×2 (06:27→16:40)
[2017-04-10] MEDS: GABAPENTIN 300 MG CAPSULE PO SCH ×2 (10:54→21:02)
[2017-04-10] MEDS: OXcarbazepine 150 MG TABLET PO SCH ×2 (10:54→21:02)
[2017-04-10] MEDS: HYDROmorphone 1 MG/ML CARPUJECT IVP PRN ×2 (11:00→16:40)
--- NOTE | 2017-04-10 17:56 | PROVIDER PROGRESS NOTE ---
Subjective - General Admit Date: 04/07/17 Procedure Date: 04/07/17 Post Op Days: 3 Procedure Performed: Exploratory laparotomy and adhesiolysis - Review of Systems Wound/Incisions: positive: Drainage (But dressing intact. Drainage is old blood.) General: positive: No symptoms (Passed a small amount of gas.) HEENT: positive: No symptoms Pulmonary: positive: No symptoms Cardiovascular: positive: No symptoms Gastrointestinal: positive: No symptoms Genitourinary: positive: No symptoms Musculoskeletal: positive: Other (Parkinsonian pain.) Skin: positive: No symptoms Psychiatric: positive: No symptoms Objective - Patient Data Reviewed Vital Signs: Yes Vital Signs: Vital Signs x48h Temp Pulse Resp BP Pulse Ox 04/10/17 15:49 36.3 C L 67 16 140/62 H 97 Intake & Output: Intake and Output Totals x24h 04/08/17 04/09/17 04/10/17 23:59 23:59 23:59 Intake Total 2137 2483 1727 Output Total 1075 1815 1525 Balance 1062 668 202 - Lab Results Lab Results: 04/08/17 05:26 04/08/17 05:26 - Current Medications Current Medications: Current Medications Generic Name Dose Route Start Last Admin Trade Name Freq PRN Reason Stop Dose Admin Atorvastatin Calcium 40 mg 04/08/17 21:00 04/09/17 20:32 Lipitor PO 40 mg QPM HAKAN Administration Clonazepam 0.5 mg 04/08/17 13:41 04/09/17 22:55 Klonopin PO 0.5 mg QPM PRN Administration Insomnia Clopidogrel Bisulfate 75 mg 04/09/17 21:00 04/09/17 20:32 Plavix PO 75 mg 2100 HAKAN Administration Gabapentin 300 mg 04/08/17 09:00 04/10/17 10:54 Neurontin PO 300 mg BID HAKAN Administration Hydromorphone HCl 0.5 mg 04/07/17 22:46 04/10/17 16:40 Dilaudid Inj IVP 0.5 mg Q1HR PRN Administration PAIN Potassium Chloride/Dextrose/Sod Cl 1,000 mls @ 83 mls/hr 04/07/17 23:00 11:03 IV Not Given .Q12H3M HAKAN Acetaminophen 100 mls @ 400 mls/hr 04/07/17 23:00 04/10/17 16:39 Ofirmev IV 400 mls/hr Q6H HAKAN Administration Cefazolin Sodium/Dextrose 50 mls @ 100 mls/hr 04/08/17 04:00 04/10/17 11:18 Ancef 2 Gm/50 Ml IV 100 mls/hr Q8H HAKAN Administration Oxcarbazepine 300 mg 04/08/17 09:00 04/10/17 10:54 Trileptal PO 300 mg BID HAKAN Administration Pantoprazole Sodium 40 mg 04/08/17 07:00 04/10/17 06:26 Protonix IVP 40 mg QDAC HAKAN Administration Carbidopa/Levodopa [ 2 each 04/09/17 06:30 04/10/17 15:06 Rytary Er 23.75 Mg- PO 2 each 95 Mg Cap] 0630,1030,1430,1830 HAKAN Administration Carbidopa/Levodopa [ 1 each 04/08/17 22:00 04/09/17 21:55 Rytary Er 23.75 Mg- PO 1 each 95 Mg Cap] 2200 HAKAN Administration Phenol/Menthol 1 sprays 04/07/17 22:46 04/08/17 00:52 Chloraseptic MM 1 sprays Q2HR PRN Administration Throat Pain Pramipexole Dihydrochloride 0.5 mg 04/09/17 12:47 04/10/17 17:13 Mirapex PO Not Given 0630,1030,1430,1830 [facility] Sodium Chloride 10 ml 04/07/17 22:46 04/10/17 16:40 Normal Saline Flush 0.9% IVP 10 ml PRN PRN Administration NEEDED PER PROVIDER ORDERS Sodium Chloride 10 ml 04/08/17 06:00 04/10/17 11:19 Normal Saline Flush 0.9% IVP Not Given Q8HR [facility] Tizanidine HCl 4 mg 04/08/17 13:41 04/09/17 17:42 Zanaflex PO 4 mg BID PRN Administration SPASMS - Physical Exam Wound/Incisions: positive: Dressing dry and intact (Some bloody drainage.) General Appearance: positive: No acute distress Eyes Bilateral: positive: No lid inflammation, Conjunctivae nml, No scleral icterus Cardiovascular: positive: Regular rate & rhythm Abdomen: positive: Non-tender, Nml bowel sounds Skin: positive: Color nml Neurologic/Psychiatric: positive: Oriented x3 Impression/Plan - Problem List Problem List: D3 s/p adhesiolysis for closed loop obstruction Bowel function has returned and have started regular diet. Will start oral pain meds and use IV for breakthrough. Make sure he is on all his own medications and after 2 meals (breakfast tomorrow) should evaluate for possible D/C.
[2017-04-10] MEDS: CLOPIDOGREL 75 MG TABLET PO SCH (21:02)
[2017-04-10] MEDS: ATORVASTATIN 40 MG TABLET PO SCH (21:02)
[2017-04-10] MEDS: clonazePAM 0.5 MG TABLET PO PRN (22:34)
[2017-04-11] MEDS: ceFAZolin 2 GM/50 ML 50 ML IV SCH ×3 (03:43→20:10)
[2017-04-11] MEDS: HYDROcod/ACETAM 5/325 MG TABLET PO PRN ×4 (04:07→18:14)
[2017-04-11] MEDS: ACETAMINOPHEN 1,000 MG/100 ML 100 ML IV SCH ×4 (04:09→22:17)
[2017-04-11] MEDS: SODIUM CHLORIDE FLUSH 0.9% 10 ML SYRINGE IVP SCH ×3 (05:35→22:17)
[2017-04-11] MEDS: HYDROmorphone 1 MG/ML CARPUJECT IVP PRN ×2 (06:46→20:13)
[2017-04-11] MEDS: Carbidopa/Levodopa [Rytary Er 23.75 Mg-95 Mg Cap] PO SCH ×5 (06:46→22:15)
[2017-04-11] MEDS: PANTOPRAZOLE 40 MG VIAL IVP SCH (06:46)
[2017-04-11] MEDS: PRAMIPEXOLE 0.25 MG TABLET PO SCH ×4 (06:47→18:15)
[2017-04-11] MEDS: GABAPENTIN 300 MG CAPSULE PO SCH ×2 (08:40→20:09)
[2017-04-11] MEDS: OXcarbazepine 150 MG TABLET PO SCH ×2 (08:40→20:09)
[2017-04-11] MEDS: CLOPIDOGREL 75 MG TABLET PO SCH (20:09)
[2017-04-11] MEDS: ATORVASTATIN 40 MG TABLET PO SCH (20:10)
[2017-04-11] MEDS: clonazePAM 0.5 MG TABLET PO PRN (22:17)
[2017-04-12] MEDS: ceFAZolin 2 GM/50 ML 50 ML IV SCH (03:35)
[2017-04-12] MEDS: SODIUM CHLORIDE FLUSH 0.9% 10 ML SYRINGE IVP SCH ×2 (04:43→12:27)
[2017-04-12] MEDS: ACETAMINOPHEN 1,000 MG/100 ML 100 ML IV SCH ×3 (04:43→16:41)
[2017-04-12] MEDS: HYDROcod/ACETAM 5/325 MG TABLET PO PRN ×3 (05:11→14:35)
[2017-04-12] MEDS: D5NS W/20 MEQ KCL 1,000 ML IV SCH (06:44)
[2017-04-12] MEDS: PANTOPRAZOLE 40 MG VIAL IVP SCH (06:44)
[2017-04-12] MEDS: PRAMIPEXOLE 0.25 MG TABLET PO SCH ×3 (06:47→14:30)
[2017-04-12] MEDS: Carbidopa/Levodopa [Rytary Er 23.75 Mg-95 Mg Cap] PO SCH ×3 (06:48→14:34)
[2017-04-12] MEDS: GABAPENTIN 300 MG CAPSULE PO SCH (08:44)
[2017-04-12] MEDS: OXcarbazepine 150 MG TABLET PO SCH (08:44)
[2017-04-12] MEDS ORDERED: SOAP SUDS ENEMA 1 EACH RC ONE (09:40)
--- NOTE | 2017-04-12 09:46 | PROVIDER PROGRESS NOTE ---
Subjective - General Admit Date: 04/07/17 Procedure Date: 04/07/17 Post Op Days: 5 Procedure Performed: Exploratory laparotomy and adhesiolysis - Review of Systems Wound/Incisions: positive: Dressing dry and intact (Some bloody drainage.) General: positive: Other (not feeling well) HEENT: positive: No symptoms Pulmonary: positive: No symptoms Cardiovascular: positive: No symptoms Gastrointestinal: positive: Other (abdominal distension) Genitourinary: positive: No symptoms Musculoskeletal: positive: Other (Parkinsonian pain.) Skin: positive: No symptoms Psychiatric: positive: No symptoms Objective - Patient Data Intake & Output: Intake and Output Totals x24h 04/10/17 04/11/17 04/12/17 23:59 23:59 23:59 Intake Total 3156 1240 440 Output Total 1525 500 600 Balance 1631 740 -160 - Lab Results Lab Results: 04/08/17 05:26 04/08/17 05:26 - Current Medications Current Medications: Current Medications Generic Name Dose Route Start Last Admin Trade Name Freq PRN Reason Stop Dose Admin Acetaminophen/Hydrocodone Bitart 1 tab 04/10/17 17:59 04/12/17 05:11 [place] 5/325 PO 1 tab Q4HR PRN Administration PAIN Atorvastatin Calcium 40 mg 04/08/17 21:00 04/11/17 20:10 Lipitor PO 40 mg QPM HAKAN Administration Clonazepam 0.5 mg 04/08/17 13:41 04/11/17 22:17 Klonopin PO 0.5 mg QPM PRN Administration Insomnia Clopidogrel Bisulfate 75 mg 04/09/17 21:00 04/11/17 20:09 Plavix PO 75 mg 2100 HAKAN Administration Gabapentin 300 mg 04/08/17 09:00 04/12/17 08:44 Neurontin PO 300 mg BID HAKAN Administration Hydromorphone HCl 0.5 mg 04/10/17 17:59 04/11/17 20:13 Dilaudid Inj IVP 0.5 mg Q1HR PRN Administration PAIN Acetaminophen 100 mls @ 400 mls/hr 04/07/17 23:00 04/12/17 04:43 Ofirmev IV Not Given Q6H HAKAN Potassium Chloride/Dextrose/Sod Cl 1,000 mls @ 30 mls/hr 04/10/17 19:47 06:44 IV 30 mls/hr .[id number] HAKAN Administration TKO Oxcarbazepine 300 mg 04/08/17 09:00 04/12/17 08:44 Trileptal PO 300 mg BID HAKAN Administration Pantoprazole Sodium 40 mg 04/08/17 07:00 04/12/17 06:44 Protonix IVP 40 mg QDAC HAKAN Administration Carbidopa/Levodopa [ 2 each 04/09/17 06:30 04/12/17 06:48 Rytary Er 23.75 Mg- PO 2 each 95 Mg Cap] 0630,1030,1430,1830 HAKAN Administration Carbidopa/Levodopa [ 1 each 04/08/17 22:00 04/11/17 22:15 Rytary Er 23.75 Mg- PO 1 each 95 Mg Cap] 2200 HAKAN Administration Phenol/Menthol 1 sprays 04/07/17 22:46 04/08/17 00:52 Chloraseptic MM 1 sprays Q2HR PRN Administration Throat Pain Pramipexole Dihydrochloride 0.5 mg 04/09/17 12:47 04/12/17 06:47 Mirapex PO Not Given 0630,1030,1430,1830 [facility] Sodium Chloride 10 ml 04/07/17 22:46 04/10/17 16:40 Normal Saline Flush 0.9% IVP 10 ml PRN PRN Administration NEEDED PER PROVIDER ORDERS Sodium Chloride 10 ml 04/08/17 06:00 04/12/17 04:43 Normal Saline Flush 0.9% IVP Not Given Q8HR [facility] Tizanidine HCl 4 mg 04/08/17 13:41 04/09/17 17:42 Zanaflex PO 4 mg BID PRN Administration SPASMS - Physical Exam Wound/Incisions: positive: Healing well Abdomen: positive: Other (mildly distended) Impression/Plan - Problem List Problem List: s/p laparotomy, Danielle. Having flatus and eating about 1/2 of food tray. No c/o nausea or vomiting. No bm though. Just not feeling well. - will try enema to see if this will get gut working better -continue diet
[2017-04-12 10:56] LABS: CALCIUM 8.9 mg/dL (8.5-10.3); POTASSIUM 3.9 mmol/L (3.5-5.0)
[2017-04-12 11:05] LABS: BASOPHILS % (AUTO) 0.5 %; EOSINOPHILS # (AUTO) 0.1 10^3/uL (0.0-0.7); EOSINOPHILS % (AUTO) 2.6 %; HCT - HEMATOCRIT 36.9 % (42.0-52.0); HGB - HEMOGLOBIN 12.5 g/dL (14.0-18.0); LYMPHOCYTES # (AUTO) 1.1 10^3/uL (1.5-3.5); MEAN CORPUSCULAR HEMOGLOBIN 32.2 pg (27.0-31.0); MEAN CORPUSCULAR HGB CONC 33.9 g/dL (32.0-36.0); MEAN PLATELET VOLUME 7.3 fL (7.4-11.4); MONOCYTES # (AUTO) 0.4 10^3/uL (0.0-1.0); MONOCYTES % (AUTO) 8.5 %; NEUTROPHILS # (AUTO) 3.4 10^3/uL (1.5-6.6); NEUTROPHILS % (AUTO) 66.4 %; NUCLEATED RED BLOOD CELLS AUTO 0.1 /100WBC; RED BLOOD COUNT 3.88 10^6/uL (4.70-6.10); UNCORRECTED WHITE BLOOD COUNT 5.1 x10^3/uL; WHITE BLOOD COUNT 5.1 x10^3/uL (4.8-10.8)
[2017-04-12] MEDS ORDERED: DOCUSATE SODIUM 250 MG CAPSULE PO SCH (15:00)
[2017-04-12 15:28] VITALS: BP 152/72
[2017-04-12] MEDS ORDERED: HYDROcod/ACET 5/325 Prepack 6 PO ONE (18:03)
--- NOTE | 2017-04-12 18:16 | Discharge Plan ---
Discharge Plan Disposition: 01 Home, Self Care Condition: Good Prescriptions: HYDROcod/ACETAM 325 [[place] 325] 1 - 2 tab PO Q4HR PRN #40 tablet PRN Reason: Pain Diet: Regular Activity Restrictions: no lifting over 15 lbs Shower Restrictions: No Driving Restrictions: Yes (wait at least 3 more days and not while on [place]) Weight Bearing: Full Weight Additional Instructions or Follow Up instructions: f/u with pcp in 1 week No Smoking: If you smoke, Please STOP! Call for help. Follow-up with: Luis Tay MD [Provider Admit Priv/Credential] - 1 Week
--- NOTE | 2017-04-16 09:54 | DISCHARGE SUMMARY ---
DATE OF ADMISSION: 04/07/2017 DATE OF DISCHARGE: 04/12/2017 REASON FOR ADMISSION: Abdominal pain. HISTORY OF PRESENT ILLNESS: The patient is a 76-year-old male who presents with abdominal pain on the day of admission. It was quite severe. Because of his pain he came to the emergency room to be evaluated. CT scan of the abdomen and pelvis was suggestive of a small bowel obstruction. He has not had any previous abdominal surgery. He was admitted to the hospital for further evaluation and treatment. HOSPITAL COURSE: The patient was admitted to the hospital and after having a CT scan in the emergency room, underwent a small bowel series. This showed contrast remaining in the antrum in the esophagus and stomach 2 hours after administration. Because of this the patient was then taken to the operating room and underwent an exploratory laparotomy and lysis of adhesions. He was then transferred to the floor in stable condition. The patient was started on a liquid diet on postoperative day 3 and was finally tolerating a regular diet on postoperative day 5. He had a bowel movement at this time and was able to eat without any significant abdominal distention. His abdominal incisions remained clean, dry, and intact without any evidence of infection. His pain medication controlled his incisional discomfort at this time. He was then discharged home postoperative day 5 in stable condition. PRINCIPAL DIAGNOSIS: Small bowel obstruction secondary to adhesions. OTHER MEDICAL PROBLEMS 1. Parkinsonism. 2. History of stroke. 3. Dyslipidemia. PROCEDURE: The patient underwent an exploratory laparotomy and lysis of adhesions on 04/07/2017. DISCHARGE PROGRAM: The patient will be discharged home. The patient is to continue his preadmission medications as previously prescribed. In addition, [place] 5/325 1-2 p.o. q.4-6 hours p.r.n. pain, he should not drive while on pain medication or for at least another 3 days. He may shower. He is to follow up in Dr. Tay' clinic in 1 week. He is not to do any lifting over 15 pounds for 2 weeks. JOB #: [id number] EXT JOB #:[id number] THAIS
== END 2017-04-12 19:16 | disposition home or self-care (01) | DRG 337 ==
LOC: ED 10:24 → MS2 18:50 → ED 20:50
PROVIDERS: ADMIT Surgery; ATTEND Surgery
PROC: 0DN80ZZ Release Small Intestine, Open Approach (ICD-10-PCS; principal; 2017-04-07 20:00)
DX: R10.12 Left upper quadrant pain (principal); K56.60 Unspecified intestinal obstruction; K56.5 Intestinal adhesions [bands] with obstruction (postinfection); G20 Parkinson's disease; E78.5 Hyperlipidemia, unspecified; G89.29 Other chronic pain; M54.9 Dorsalgia, unspecified; Z79.02 Long term (current) use of antithrombotics/antiplatelets; Z86.73 Personal history of transient ischemic attack (TIA), and cerebral infarction without residual deficits; Z79.899 Other long term (current) drug therapy
CPT/HCPCS: 36415; 74000; 74176; 74250; 80048; 80053; 81001; 81003; 83605; 83690; 84484; 85025; 87086; 93005; 96361; 96374; 96376; 99284; 99285

== ENCOUNTER 2022-04-10 00:58 | Outpatient (CLI) | payer MEDICARE, OTHER | END 2022-04-10 00:59 | disposition short-term general hospital (02) | LOC: EMS 00:58 | DX: R55 Syncope and collapse (principal); S09.90XA Unspecified injury of head, initial encounter; R51.9 Headache, unspecified; W18.30XA Fall on same level, unspecified, initial encounter; Y92.009 Unspecified place in unspecified non-institutional (private) residence as the place of occurrence of the external cause; Z79.02 Long term (current) use of antithrombotics/antiplatelets | CPT/HCPCS: A0425; A0429; A0888 ==

== ENCOUNTER 2022-12-16 10:03 | Outpatient (CLI) | payer MEDICARE, OTHER | END 2022-12-16 23:59 | disposition short-term general hospital (02) | LOC: EMS 10:03 | DX: R53.1 Weakness (principal); R42 Dizziness and giddiness; R55 Syncope and collapse; R53.83 Other fatigue; R00.1 Bradycardia, unspecified; R03.1 Nonspecific low blood-pressure reading | CPT/HCPCS: A0425; A0427 ==

== ENCOUNTER 2023-06-04 10:56 | Outpatient (CLI) | payer MEDICARE, OTHER | END 2023-06-04 10:57 | disposition short-term general hospital (02) | LOC: EMS 10:56 | DX: R10.31 Right lower quadrant pain (principal) | CPT/HCPCS: A0425; A0429 ==